=== PATIENT | female | born 1950 | race Caucasian/White ===

== ENCOUNTER → 2017-01-25 | Outpatient (CLI) | payer MEDICARE, OTHER ==
[~2017-01-25] MED LIST: ADVAIR IH; DULCOLAX TAB5 MG PO; DULCOLAX10 MG RC; MEDROL 4MG DOSPA4 MG PO; RESTORIL; SEE INSTRUCTIONS IT; SENNA-GEN8.6 MG PO; SINGULAIR
== END ==
LOC: COL.RAD 01-23 08:15
DX: Z01.89 Encounter for other specified special examinations (principal)

== ENCOUNTER → 2017-03-21 | Outpatient (CLI) | payer MEDICARE, OTHER ==
[2005-10-10 16:18] VITALS: BP 98/60
[~2017-03-21] VITALS: Ht 157.5 cm; Wt 91.1 kg
[~2017-03-21] MED LIST changes: +AMITIZA24 MCG PO; +ASPIRIN E.C. 8181 MG PO; +DIOVAN 80MG80 MG PO; +LASIX 40MG TABL40 MG PO; +LEVOXYL0.125 MG PO; +LINZESS290CAP PO; +LIORESAL20 MG PO; +NORCO 325 MG-101 TAB PO; +PRILOSEC 20MG20 MG PO; +RESTORIL 1515 MG/CAP PO; +TOPROL XL 25MG25 MG PO
[2017-03-21 10:08] VITALS: BP 134/74; PULSE 79
== END ==
LOC: COL.RAD 03-07 09:00
DX: M54.5 Low back pain (principal); Z53.9 Procedure and treatment not carried out, unspecified reason

== ENCOUNTER 2017-03-28 06:50 | Outpatient (CLI) | payer MEDICARE, OTHER ==
[2005-10-10 16:18] VITALS: BP 98/60
[~2017-03-28] VITALS: Ht 157.5 cm; Wt 94.1 kg
[2017-03-28] VITALS (7 sets, daily range): BP systolic 99–159; BP diastolic 48–74; PULSE 60–104; TEMP 98.6
[2017-03-28] MEDS ORDERED: PREDNISONE20 MG PO (07:09)
== END 2017-03-28 10:59 | disposition home or self-care (01) ==
LOC: COL.RAD 06:50
DX: M47.816 Spondylosis without myelopathy or radiculopathy, lumbar region (principal); M41.86 Other forms of scoliosis, lumbar region; M46.86 Other specified inflammatory spondylopathies, lumbar region; M43.17 Spondylolisthesis, lumbosacral region; M48.061 Spinal stenosis, lumbar region without neurogenic claudication
CPT/HCPCS: Q9965

== ENCOUNTER 2017-09-21 10:16 | Outpatient (CLI) | payer MEDICARE, OTHER ==
[2005-10-10 16:18] VITALS: BP 98/60
[2017-09-21] VITALS (8 sets, daily range): BP systolic 107–165; BP diastolic 62–91; PULSE 79–99; TEMP 97.4
[~2017-09-21] VITALS: Ht 157.5 cm; Wt 88.3 kg
[~2017-09-21 10:16] MED LIST changes: +PREDNISONE20 MG PO
[2017-09-21] MEDS ORDERED: VALIUM 10MG10 MG/TAB PO (10:55)
[2017-09-21] MEDS ORDERED: BENICAR 20MG TA20 MG PO (11:01)
== END 2017-09-21 16:43 | disposition home or self-care (01) ==
LOC: COL.RAD 10:16
DX: M41.86 Other forms of scoliosis, lumbar region (principal); M48.061 Spinal stenosis, lumbar region without neurogenic claudication; M51.36 Other intervertebral disc degeneration, lumbar region; M99.73 Connective tissue and disc stenosis of intervertebral foramina of lumbar region; M43.06 Spondylolysis, lumbar region; Z98.1 Arthrodesis status; Z96.89 Presence of other specified functional implants
CPT/HCPCS: Q9965

== ENCOUNTER 2020-09-07 08:22 | Day surgery (SDC) | payer MEDICARE, OTHER ==
[2005-10-10 16:18] VITALS: BP 98/60
[~2020-09-07] VITALS: Ht 157.5 cm; Wt 68.2 kg
[~2020-09-07 08:22] MED LIST changes: +BENICAR 20MG TA20 MG PO; +VALIUM 10MG10 MG/TAB PO
[2020-09-07 11:10] VITALS: BP 121/74; PULSE 86; TEMP 99.3
[2020-09-07 11:15] VITALS: BP 126/74; PULSE 86
[2020-09-07 11:30] VITALS: BP 125/72; PULSE 84
--- NOTE | 2020-09-07 12:20 | NUR ---
1110 Pt returns from endo procedure via cart to [facility]. Pt remains on cart due to complications with ambulation. Pt same as preop and responding to all questions appropriately. Report received from [facility]. 1130 Dr. Solano in to visit with pt. [address] Solano having the pt not eating or drinking here but waiting until she gets to [place] for lunch. Dr. Solano is in agreement with this. 1140 Pt dressed with assistance from [facility]. 1150 Discharge instructions explained to pt and Branden. All questions answered to their satisfaction. 1200 Pt transferred out of hospital via wheelchair and this RN and [facility] assisting. Transfer to [place] vehicle driven by Branden. 1220 Report called to nurse Winter at [place]. All questions answered to her satisfaction.
[2020-09-07 12:24] VITALS: BP 130/91; PULSE 99; TEMP 100.2
[2020-09-07] MEDS ORDERED: KLOR-CON SPRIN10 MEQ PO (13:36)
[2020-09-07] MEDS ORDERED: MELATONIN5 M1 SL (13:37)
[2020-09-07] MEDS ORDERED: CLARITIN 1010 MG/TAB PO (13:37)
[2020-09-07] MEDS ORDERED: EFFEXOR 75M75 MG/TAB PO (13:38)
[2020-09-07] MEDS ORDERED: MOTEGRITY2 MG PO (13:38)
[2020-09-07] MEDS ORDERED: SINGULAIR 110 MG/TAB PO (13:38)
[2020-09-07] MEDS ORDERED: LIORESAL 1010 MG/TAB PO (13:39)
[2020-09-07] MEDS ORDERED: LOPRESSOR 225 MG/TAB PO (13:40)
[2020-09-07] MEDS ORDERED: RESTASIS 60VL OU (13:41)
[2020-09-07] MEDS ORDERED: ADVIL200 MG PO (13:41)
[2020-09-07] MEDS ORDERED: REFRESH OPTIVE10 M2 OP (13:42)
[2020-09-07] MEDS ORDERED: TYLENOL 325MG325 MG PO (13:43)
== END 2020-09-07 12:00 | disposition home or self-care (01) ==
LOC: SDCO 08:22
DX: Z12.11 Encounter for screening for malignant neoplasm of colon (principal); K59.09 Other constipation; K21.9 Gastro-esophageal reflux disease without esophagitis; G47.33 Obstructive sleep apnea (adult) (pediatric); M19.90 Unspecified osteoarthritis, unspecified site; G89.29 Other chronic pain; E07.9 Disorder of thyroid, unspecified; I10 Essential (primary) hypertension; I82.409 Acute embolism and thrombosis of unspecified deep veins of unspecified lower extremity; M48.061 Spinal stenosis, lumbar region without neurogenic claudication; M54.9 Dorsalgia, unspecified; M43.10 Spondylolisthesis, site unspecified; Z20.822 Contact with and (suspected) exposure to COVID-19; Z79.82 Long term (current) use of aspirin; Z79.899 Other long term (current) drug therapy; Z87.891 Personal history of nicotine dependence; Z99.89 Dependence on other enabling machines and devices
CPT/HCPCS: J2704; J3010; J7030

== ENCOUNTER → 2021-03-17 | Outpatient (CLI) | payer MEDICARE, OTHER ==
[~2021-03-17] MED LIST changes: +ADVIL200 MG PO; +CLARITIN 1010 MG/TAB PO; +EFFEXOR 75M75 MG/TAB PO; +KLOR-CON SPRIN10 MEQ PO; +LIORESAL 1010 MG/TAB PO; +LOPRESSOR 225 MG/TAB PO; +MELATONIN5 M1 SL; +MOTEGRITY2 MG PO; +REFRESH OPTIVE10 M2 OP; +RESTASIS 60VL OU; +SINGULAIR 110 MG/TAB PO; +TYLENOL 325MG325 MG PO
== END ==
LOC: COL.RAD 12:55
DX: Z01.812 Encounter for preprocedural laboratory examination (principal); S12.100A Unspecified displaced fracture of second cervical vertebra, initial encounter for closed fracture; Z87.81 Personal history of (healed) traumatic fracture; Z98.1 Arthrodesis status
CPT/HCPCS: Q9967

== ENCOUNTER 2023-02-13 11:35 | Outpatient (CLI) | payer MEDICARE, OTHER ==
[2005-10-10 16:18] VITALS: BP 98/60
[~2023-02-13 11:35] MED LIST changes: -ADVIL200 MG PO; +ASPERCREME ARTH50 GM TP; +ATROVENT I0.2 MG/1 M IH; +DULCOLAX STOOL100 MG PO; +GENTLE LAXATIVE10 MG RC; +IMODIUM 2MG CAPS2 MG PO; +IPRATROPIUM BROM3 M1 IH; +LACRI LUBE1 OIN OP; +MIRALAX PA17 GM/Dose PO; +MOTRIN 400400 MG/TAB PO; +MOVANTIK25 MG PO; +NORCO 325 MG-51 TAB PO; +NYSTATIN POWDER15 GM TOP; +ROCEPHIN VIA1 G/VIAL IV; +SYNTHROID0.112 MG/T PO; +SYSTANE BALANCE10 M1 OP; +VALIUM 5MG T5 MG/TAB PO; +VOLTAREN GEL 1%1 TU TP; +[UNRECOGNIZED DRUG - OTHER] PO
--- NOTE | 2023-02-13 13:20 | NUR ---
1155 ARRIVES PER WHEELCHAIR FROM [facility] FACILITY ACCOMPANIED BY HEALTHCARE WORKER/TRANSPORTER. PATIENT AWAKE. NONVERBAL WITH NO MEANINGFUL EYE CONTACT OBSERVED. RESP UNLABORED. VITAL SIGNS OBTAINED: 97.8, 126/89, 84,16, 96% RA TRANSFERRED TO CART WITH 2 ASSIST 1225 UNABLE TO CONTACT EITHER SON LISTED DPOA FOR VERBAL PHONE CONSENT FOR PROCEDURE. 1245 SERA "FAINA" MARTHADIEGOTTRissa, SON CALLS. VERBAL PHONE CONSENT RECEIVED BY 2 NURSES. 1310 AWAKE, EYES OPEN. GTUBE PATENT. NO DRAINAGE OBSERVED AT SIDE. DISCHARGE INSTRUCTIONS INCLUDED IN FOLDER THAT HEALTHCARE WORKER WILL RETURN TO [facility]. 1318 VITAL SIGNS OBTAINED: 97.8 139/77, 80, 96% RA. PATIENT TRANSFERRED TO WHEEL CHAIR WITH 2 ASSIST
== END 2023-02-13 13:20 | disposition home or self-care (01) ==
LOC: SDCO 11:35
DX: K94.23 Gastrostomy malfunction (principal); E46 Unspecified protein-calorie malnutrition; G31.9 Degenerative disease of nervous system, unspecified
CPT/HCPCS: 33081